=== PATIENT | female | born 1940 | race Caucasian/White ===

== ENCOUNTER 2021-04-05 20:46 | Observation (INO) | payer MEDICARE ==
[2021-04-05] MEDS ORDERED: ACETAMINOPHEN TAB 500 MG TAB PO STA (21:59)
[2021-04-05] MEDS ORDERED: KETOROLAC 15 MG/ML 1 ML VIAL IVP STA (21:59)
[2021-04-05] MEDS ORDERED: SODIUM CHLORIDE 0.9% 1,000 ML IV STA (21:59)
--- NOTE | 2021-04-05 22:00 | ED ---
Recheck HPI - General Chief Complaint: Allergic Reaction Stated Complaint: Allergic reaction, Vomiting Time Seen by Provider: 04/05/21 21:59 Source: patient, family, RN notes reviewed, old records reviewed Mode of arrival: wheelchair Limitations: altered mental status - History of Present Illness Initial Comments: This is a 81-year-old female DF for evaluation patient significant altered today for evaluation possible recent diagnosis of urinary tract infection acting appropriately. Patient unable to provide medical history history. Patient's chart as well as EMS to the emergency department MD Complaint: abnormal lab (History of urinary tract infection with altered mental status) -: hour(s) Returns Today for: Called Because of Abnormal Lab/Test, needs IV antibiotics, p ersistent/worsening pain related to initial visit Symptoms Since Prior Visit: no new symptoms Associated Symptoms: none Treatments Prior to Arrival: Given Antibiotics on - Related Data Home Medications Medication Instructions Recorded Confirmed Ascorbic Acid [Vitamin C] 500 mg PO HS 04/05/21 04/05/21 Atorvastatin Calcium [Lipitor] 20 mg PO HS 04/05/21 04/05/21 Cholecalciferol [Vitamin D3 (25 25 mcg PO HS 04/05/21 04/05/21 Mcg = 1000 Iu)] Cranberry Fruit Concentrate [Azo 500 mg PO DAILY 04/05/21 04/05/21 Cranberry] Lisinopril [Prinivil] 10 mg PO DAILY 04/05/21 04/05/21 Multivit-Min/Iron/Folic/Lutein 1 tab PO DAILY 04/05/21 04/05/21 [Centrum Silver Women Tablet] metFORMIN HCL [Glucophage] 500 mg PO DAILY 04/05/21 04/05/21 Previous Rx's Medication Instructions Recorded Levofloxacin [Levaquin] 500 mg PO Q24H #7 tab 04/08/21 lisinopriL [Zestril] 10 mg PO DAILY #30 tab 04/08/21 Allergies Allergy/AdvReac Type Severity Reaction Status Date / Time nitrofurantoin Allergy Unknown Verified 04/05/21 23:40 [From Macrobid] Sulfa (Sulfonamide Allergy Unknown Verified 04/05/21 23:40 Antibiotics) Review of Systems ROS Statement: Those systems with pertinent positive or pertinent negative responses have been documented in the HPI. ROS Other: All systems not noted in ROS Statement are negative. Past Medical History Past Medical History: Cancer, Diabetes Mellitus, Hyperlipidemia, Hypertension Additional Past Medical History / Comment(s): UTI, bladder cancer History of Any Multi-Drug Resistant Organisms: None Reported Past Surgical History: Orthopedic Surgery Past Psychological History: No Psychological Hx Reported Smoking Status: Former smoker Past Alcohol Use History: None Reported Past Drug Use History: None Reported - Past Family History Mother Family Medical History: Unable to Obtain (Not applicable to the current admissi on due to advanced age) General Exam Limitations: no limitations General appearance: alert, in no apparent distress Head exam: Present: atraumatic, normocephalic, normal inspection Eye exam: Present: normal appearance, PERRL, EOMI. Absent: scleral icterus, conjunctival injection, periorbital swelling ENT exam: Present: normal exam, mucous membranes moist Neck exam: Present: normal inspection. Absent: tenderness, meningismus, lymp hadenopathy Respiratory exam: Present: normal lung sounds bilaterally. Absent: respiratory distress, wheezes, rales, rhonchi, stridor Cardiovascular Exam: Present: regular rate, normal rhythm, normal heart sounds. Absent: systolic murmur, diastolic murmur, rubs, gallop, clicks GI/Abdominal exam: Present: soft, normal bowel sounds. Absent: distended, tenderness, guarding, rebound, rigid Extremities exam: Present: normal inspection, full ROM, normal capillary refill. Absent: tenderness, pedal edema, joint swelling, calf tenderness Back exam: Present: normal inspection Neurological exam: Present: alert, oriented X3, CN II-XII intact Psychiatric exam: Present: normal affect, normal mood Skin exam: Present: warm, dry, intact, normal color. Absent: rash Course Vital Signs 04/05/21 04/06/21 04/06/21 21:43 00:51 04:07 Temperature 100.3 F H 97.7 F 97.1 F L Pulse Rate 77 74 Pulse Rate [ 65 Right Pulse Oximetery] Respiratory 20 16 14 Rate Blood Pressure 101/56 92/51 Blood Pressure 103/68 [Right Arm] O2 Sat by Pulse 93 L 97 96 Oximetry 04/06/21 05:02 Temperature 97.5 F L Pulse Rate Pulse Rate [ 66 Right Pulse Oximetery] Respiratory 16 Rate Blood Pressure Blood Pressure 113/71 [Right Arm] O2 Sat by Pulse 97 Oximetry - Reevaluation(s) Reevaluation #1: 04/23/21 07:13 Medical record is reviewed Patient symptoms are significantly improved here in the ER Patient informed results and questions answered Medical Decision Making - Medical Decision Making 79 female with urinary tract infection is not improving or getting Better as an outpatient altered mental status and fever. Patient be admitted for IV antibiotics fever control hydration and supportive care - Lab Data Result diagrams: 04/07/21 08:16 04/07/21 08:16 Lab Results 04/05/21 04/05/21 04/05/21 Range/Units 22:31 22:31 22:31 WBC 20.3 H (3.8-10.6) k/uL RBC 4.68 (3.80-5.40) m/uL Hgb 13.7 (11.4-16.0) gm/dL Hct 42.7 (34.0-46.0) % MCV 91.2 (80.0-100.0) fL MCH 29.3 (25.0-35.0) pg MCHC 32.1 (31.0-37.0) g/dL RDW 12.5 (11.5-15.5) % Plt Count 239 (150-450) k/uL MPV 7.3 Neutrophils % 94 % Lymphocytes % 3 % Monocytes % 3 % Eosinophils % 1 % Basophils % 0 % Neutrophils # 19.0 H (1.3-7.7) k/uL Lymphocytes # 0.5 L (1.0-4.8) k/uL Monocytes # 0.6 (0-1.0) k/uL Eosinophils # 0.1 (0-0.7) k/uL Basophils # 0.0 (0-0.2) k/uL PT 10.3 (9.0-12.0) sec INR 1.0 (<1.2) APTT 21.2 L (22.0-30.0) sec Sodium 137 (137-145) mmol/L Potassium 4.0 (3.5-5.1) mmol/L Chloride 102 (98-107) mmol/L Carbon Dioxide 27 (22-30) mmol/L Anion Gap 8 mmol/L BUN 23 H (7-17) mg/dL Creatinine 1.07 H (0.52-1.04) mg/dL Est GFR (CKD-EPI)AfAm 57 (>60 ml/min/1.73 sqM) Est GFR (CKD-EPI)NonAf 49 (>60 ml/min/1.73 sqM) Glucose 167 H (74-99) mg/dL Plasma Lactic Acid Melquiades (0.7-2.0) mmol/L Calcium 9.3 (8.4-10.2) mg/dL Magnesium 1.9 (1.6-2.3) mg/dL Total Bilirubin 1.2 (0.2-1.3) mg/dL AST 24 (14-36) U/L ALT 19 (4-34) U/L Alkaline Phosphatase 81 (38-126) U/L Lactate Dehydrogenase 534 (313-618) U/L C-Reactive Protein 17.0 H (<1.0) mg/dL Total Protein 6.7 (6.3-8.2) g/dL Albumin 3.9 (3.5-5.0) g/dL Urine Color Urine Appearance (Clear) Urine pH (5.0-8.0) Ur Specific Monarch (1.001-1.035) Urine Protein (Negative) Urine Glucose (UA) (Negative) Urine Ketones (Negative) Urine Blood (Negative) Urine Nitrite (Negative) Urine Bilirubin (Negative) Urine Urobilinogen (<2.0) mg/dL Ur Leukocyte Esterase (Negative) Urine RBC (0-5) /hpf Urine WBC (0-5) /hpf Ur Squamous Epith Cells (0-4) /hpf Urine Bacteria (None) /hpf Urine Mucus (None) /hpf 04/05/21 04/05/21 Range/Units 22:31 22:34 WBC (3.8-10.6) k/uL RBC (3.80-5.40) m/uL Hgb (11.4-16.0) gm/dL Hct (34.0-46.0) % MCV (80.0-100.0) fL MCH (25.0-35.0) pg MCHC (31.0-37.0) g/dL RDW (11.5-15.5) % Plt Count (150-450) k/uL MPV Neutrophils % % Lymphocytes % % Monocytes % % Eosinophils % % Basophils % % Neutrophils # (1.3-7.7) k/uL Lymphocytes # (1.0-4.8) k/uL Monocytes # (0-1.0) k/uL Eosinophils # (0-0.7) k/uL Basophils # (0-0.2) k/uL PT (9.0-12.0) sec INR (<1.2) APTT (22.0-30.0) sec Sodium (137-145) mmol/L Potassium (3.5-5.1) mmol/L Chloride (98-107) mmol/L Carbon Dioxide (22-30) mmol/L Anion Gap mmol/L BUN (7-17) mg/dL Creatinine (0.52-1.04) mg/dL Est GFR (CKD-EPI)AfAm (>60 ml/min/1.73 sqM) Est GFR (CKD-EPI)NonAf (>60 ml/min/1.73 sqM) Glucose (74-99) mg/dL Plasma Lactic Acid Melquiades 1.0 (0.7-2.0) mmol/L Calcium (8.4-10.2) mg/dL Magnesium (1.6-2.3) mg/dL Total Bilirubin (0.2-1.3) mg/dL AST (14-36) U/L ALT (4-34) U/L Alkaline Phosphatase (38-126) U/L Lactate Dehydrogenase (313-618) U/L C-Reactive Protein (<1.0) mg/dL Total Protein (6.3-8.2) g/dL Albumin (3.5-5.0) g/dL Urine Color Yellow Urine Appearance Clear (Clear) Urine pH 5.5 (5.0-8.0) Ur Specific Monarch 1.024 (1.001-1.035) Urine Protein 1+ H (Negative) Urine Glucose (UA) Negative (Negative) Urine Ketones 1+ H (Negative) Urine Blood Negative (Negative) Urine Nitrite Negative (Negative) Urine Bilirubin Negative (Negative) Urine Urobilinogen <2.0 (<2.0) mg/dL Ur Leukocyte Esterase Moderate H (Negative) Urine RBC 3 (0-5) /hpf Urine WBC 30 H (0-5) /hpf Ur Squamous Epith Cells 1 (0-4) /hpf Urine Bacteria Rare H (None) /hpf Urine Mucus Occasional H (None) /hpf - EKG Data -: EKG Interpreted by Me (EKG shows NSR 70 NJ 146 QRS 86 QTc 453) - Radiology Data Radiology results: report reviewed (Chest x-rays negative for acute disease), image reviewed Disposition Clinical Impression: UTI (urinary tract infection), Fever, Altered mental state, Leukocytosis, Failure of outpatient treatment Disposition: ADMITTED IP TO THIS HOSP Condition: Fair Is patient prescribed a controlled substance at d/c from ED?: No
[2021-04-05 22:49] LABS: Basophils % (A) 0 %; Eosinophils # (A) 0.1 k/uL (0-0.7); Eosinophils % (A) 1 %; HCT 42.7 % (34.0-46.0); HGB 13.7 gm/dL (11.4-16.0); Lymphocytes # (A) 0.5 k/uL (1.0-4.8); Lymphocytes % (A) 3 %; MCH 29.3 pg (25.0-35.0); MCHC 32.1 g/dL (31.0-37.0); MCV 91.2 fL (80.0-100.0); Mean Platelet Volume 7.3; Monocytes # (A) 0.6 k/uL (0-1.0); Monocytes % (A) 3 %; Neutrophils % (A) 94 %; Platelet Count 239 k/uL (150-450); RBC 4.68 m/uL (3.80-5.40); RDW 12.5 % (11.5-15.5); WBC 20.3 k/uL (3.8-10.6)
--- NOTE | 2021-04-05 22:49 | XR ---
EXAMINATION TYPE: XR chest 1V portable DATE OF EXAM: 04/05/2021 COMPARISON: NONE HISTORY: Pneumonia. Short of breath TECHNIQUE: Single view FINDINGS: There is coarse interstitial density in the lungs. This is mainly in the lower lobes. Thora cic aorta is atheromatous. There are no hilar masses. Mediastinum shows no evidence of adenopathy. [place] ny thorax is intact. IMPRESSION: Mild pulmonary fibrotic changes. No acute lung disease.
[2021-04-05 22:59] LABS: Albumin 3.9 g/dL (3.5-5.0); Calcium 9.3 mg/dL (8.4-10.2); Magnesium 1.9 mg/dL (1.6-2.3); Total Bilirubin 1.2 mg/dL (0.2-1.3); Total Protein 6.7 g/dL (6.3-8.2)
[2021-04-05 23:11] LABS: Appearance,Urine Clear (Clear); Bacteria,Urine Rare /hpf; Bilirubin,Urine Negative (Negative); Blood,Urine Negative (Negative); Color,Urine Yellow; Glucose,Urine (UA) Negative (Negative); Ketones,Urine 1+ (Negative); Leukocyte Esterase,Urine Moderate (Negative); Mucus,Urine Occasional /hpf; Nitrite,Urine Negative (Negative); PH, Urine 5.5 (5.0-8.0); Protein,Urine 1+ (Negative); RBC,Urine 3 /hpf (0-5); Specific Gravity,Urine 1.024 (1.001-1.035); Squamous Epithelial Cell,Urine 1 /hpf (0-4); Urobilinogen,Urine <2.0 mg/dL (<2.0); WBC,Urine 30 /hpf (0-5)
[2021-04-05 23:25] LABS: Prothrombin Time 10.3 sec (9.0-12.0)
[2021-04-05 23:37] LABS: Partial Thromboplastin Time 21.2 sec (22.0-30.0)
[2021-04-06] MEDS ORDERED: ACETAMINOPHEN TAB 325 MG TAB PO PRN (01:17)
[2021-04-06] MEDS ORDERED: NALOXONE 0.4 MG/ML 1 ML VIAL IV PRN (01:17)
[2021-04-06] MEDS ORDERED: ONDANSETRON 4 MG/2 ML VIAL IVP PRN (01:17)
[2021-04-06] MEDS ORDERED: SODIUM CHLORIDE 0.9% 1,000 ML IV STA (01:19)
--- NOTE | 2021-04-06 02:35 | P.HPIM ---
History of Present Illness H&P Date: 04/06/21 The patient is an 80-year-old female with a PMH of type II DM, hypertension, and hyperlipidemia who presented to the emergency room due to complaints of dizziness. The patient reports that she was seen at her primary care physician's office yesterday for complaints of feeling off-balance. She reports that this is a typical symptom for when she gets UTI. She was started on Macrobid yesterday, and after taking 2 doses, she noticed that her dizziness had only progressed and she became confused as per the family at home. The family subsequently brought her to the emergency room. The patient notes feeling much better at the time of interview, and reported feeling almost back to her baseline. She denied experiencing any rashes, shortness of breath, or any other ALLERGIC symptoms. Reports mild nausea earlier today with a single episode of vomiting. Denied any urinary complaints. Further denied chest discomfort, abdominal pain, diarrhea, headaches, visual disturbances, weakness, numbness, tingling. The patient was febrile in the emergency room upon presentation with T-max of 100.3F. Laboratory evaluation was remarkable for leukocytosis of 20.3, BUN 23, creatinine 1.07, lactic acid 1.0, with UA consistent with UTI. Review of systems: Pertinent positives and negatives as discussed in HPI, a complete review of systems was performed and all other systems are negative. Physical examination: General: non toxic, no distress, appears at stated age, normal weight Derm: no unusual rashes/lesions no unusual ecchymoses, warm, dry Head: atraumatic, normocephalic, symmetric Eyes: EOMI, no lid lag, anicteric sclera, pupils equal round reactive to light ENT: Nose and ears atraumatic, no thrush, no pharyngeal erythema Neck: No thyromegaly, no cervical lymphadenopathy, trachea midline, supple Mouth: no lip lesion, mucus membranes moist Cardiovascular: S1S2 reg, no murmur, positive posterior tibial pulse bilateral, no edema, capillary refill less than 2 seconds Lungs: CTA bilateral, no rhonchi, no rales , no accessory muscle use Abdominal: soft, nontender to palpation, no guarding, no appreciable organomegaly, normal bowel sounds Ext: no gross muscle atrophy, muscle strength 5 out of 5 in all 4 extremities grossly, no contractures, Neuro: CN II-XI grossly intact, light touch intact all 4 extremities, finger to nose within normal limits, Psych: Alert, oriented, appropriate affect Assessment/plan UTI with failure of outpatient therapy -Continue with ceftriaxone -IV fluids -Follow up cultures Acute kidney injury -Likely secondary to dehydration with UTI -IV fluids and monitor for now Chronic conditions: Type II DM, hypertension, hyperlipidemia -Continue with home meds -Check A1c -Lispro insulin sliding scale and blood glucose monitoring DVT prophylaxis -Heparin subcu The patient is admitted with an anticipated [] than 2 midnight stay for evaluation of []. CODE STATUS:[] Discussed with: [] Anticipated discharge date: [] Anticipated discharge place: [] A total of [] minutes was spent on the care of this complex patient more than 50% of the time was spent in counseling and care coordination. Past Medical History Past Medical History: Cancer, Diabetes Mellitus, Hyperlipidemia, Hypertension Additional Past Medical History / Comment(s): UTI, bladder cancer History of Any Multi-Drug Resistant Organisms: None Reported Past Surgical History: Orthopedic Surgery Past Psychological History: No Psychological Hx Reported Smoking Status: Former smoker Past Alcohol Use History: None Reported Past Drug Use History: None Reported - Past Family History Mother Family Medical History: Unable to Obtain (Not applicable to the current admission due to advanced age) Medications and Allergies Home Medications Medication Instructions Recorded Confirmed Type Ascorbic Acid [Vitamin C] 500 mg PO HS 04/05/21 04/05/21 History Atorvastatin Calcium [Lipitor] 20 mg PO HS 04/05/21 04/05/21 History Cholecalciferol [Vitamin D3 (25 25 mcg PO HS 04/05/21 04/05/21 History Mcg = 1000 Iu)] Cranberry Fruit Concentrate [Azo 500 mg PO DAILY 04/05/21 04/05/21 History Cranberry] Lisinopril [Prinivil] 10 mg PO DAILY 04/05/21 04/05/21 History Multivit-Min/Iron/Folic/Lutein 1 tab PO DAILY 04/05/21 04/05/21 History [Centrum Silver Women Tablet] metFORMIN HCL [Glucophage] 500 mg PO DAILY 04/05/21 04/05/21 History Allergies Allergy/AdvReac Type Severity Reaction Status Date / Time nitrofurantoin Allergy Unknown Verified 04/05/21 23:40 [From Macrobid] Sulfa (Sulfonamide Allergy Unknown Verified 04/05/21 23:40 Antibiotics) Physical Exam Vitals: Vital Signs Temp Pulse Resp BP Pulse Ox 04/06/21 00:51 97.7 F 74 16 92/51 97 04/05/21 21:43 100.3 F H 77 20 101/56 93 L Intake and Output 04/05/21 04/05/21 04/06/21 14:59 22:59 06:59 Other: Weight 69.4 kg Results CBC & Chem 7: 04/05/21 22:31 04/05/21 22:31 Labs: Abnormal Lab Results - Last 24 Hours (Table) 04/05/21 04/05/21 04/05/21 Range/Units 22:31 22:31 22:31 WBC 20.3 H (3.8-10.6) k/uL Neutrophils # 19.0 H (1.3-7.7) k/uL Lymphocytes # 0.5 L (1.0-4.8) k/uL APTT 21.2 L (22.0-30.0) sec BUN 23 H (7-17) mg/dL Creatinine 1.07 H (0.52-1.04) mg/dL Glucose 167 H (74-99) mg/dL C-Reactive Protein 17.0 H (<1.0) mg/dL Urine Protein (Negative) Urine Ketones (Negative) Ur Leukocyte Esterase (Negative) Urine WBC (0-5) /hpf Urine Bacteria (None) /hpf Urine Mucus (None) /hpf 04/05/21 Range/Units 22:34 WBC (3.8-10.6) k/uL Neutrophils # (1.3-7.7) k/uL Lymphocytes # (1.0-4.8) k/uL APTT (22.0-30.0) sec BUN (7-17) mg/dL Creatinine (0.52-1.04) mg/dL Glucose (74-99) mg/dL C-Reactive Protein (<1.0) mg/dL Urine Protein 1+ H (Negative) Urine Ketones 1+ H (Negative) Ur Leukocyte Esterase Moderate H (Negative) Urine WBC 30 H (0-5) /hpf Urine Bacteria Rare H (None) /hpf Urine Mucus Occasional H (None) /hpf
[2021-04-06] MEDS: SODIUM CHLORIDE 0.9% 1,000 ML IV SCH ×3 (04:06→17:30)
[2021-04-06 07:23] LABS: Glucose,Whole Blood 91 mg/dL (75-99)
[2021-04-06] MEDS: HEPARIN SODIUM,PORCINE/PF 5,000 UNIT/0.5 ML SYRINGE SQ SCH ×3 (08:05→20:56)
[2021-04-06] MEDS: INSULIN ASPART (NovoLOG) 100 UNIT/ML VIAL SQ SCH ×4 (08:06→20:37)
[2021-04-06 11:33] LABS: HCT 39.7 % (37.2-46.3); MCH 28.4 pg (27.0-32.0); MCHC 30.2 g/dL (32.0-37.0); MCV 94.1 fL (80.0-97.0); Mean Platelet Volume 10.4 fL (9.5-12.2); Platelet Count 198 X 10*3/uL (140-440); RBC 4.22 X 10*6/uL (4.10-5.20); RDW 13.1 % (11.5-14.5); WBC 12.94 X 10*3/uL (4.50-10.00)
[2021-04-06 11:53] LABS: Glucose,Whole Blood 96 mg/dL (75-99)
[2021-04-06 13:15] LABS: African American GFR (CKD) 54.5 (60.0-200.0); Anion Gap 12.6 mmol/L (4.00-12.00); Blood Urea Nitrogen 19.8 mg/dL (9.0-27.0); Calcium 8.2 mg/dL (8.7-10.3); Carbon Dioxide 22.4 mmol/L (21.6-31.8)
[2021-04-06 17:00] LABS: Glucose,Whole Blood 101 mg/dL (75-99)
[2021-04-06 20:19] LABS: Glucose,Whole Blood 117 mg/dL (75-99)
[2021-04-06] MEDS: ATORVASTATIN 20 MG TAB PO SCH (20:56)
[2021-04-07] MEDS: SODIUM CHLORIDE 0.9% 1,000 ML IV SCH ×4 (02:04→20:40)
[2021-04-07 07:32] LABS: Glucose,Whole Blood 101 mg/dL (75-99)
[2021-04-07] MEDS: HEPARIN SODIUM,PORCINE/PF 5,000 UNIT/0.5 ML SYRINGE SQ SCH ×3 (08:55→20:40)
[2021-04-07] MEDS: INSULIN ASPART (NovoLOG) 100 UNIT/ML VIAL SQ SCH ×4 (08:57→20:18)
[2021-04-07 09:30] LABS: Basophils % (A) 0 %; Eosinophils # (A) 0.3 k/uL (0-0.7); Eosinophils % (A) 5 %; HCT 39.7 % (34.0-46.0); HGB 12.6 gm/dL (11.4-16.0); Lymphocytes # (A) 0.6 k/uL (1.0-4.8); Lymphocytes % (A) 9 %; MCH 29.4 pg (25.0-35.0); MCHC 31.8 g/dL (31.0-37.0); MCV 92.4 fL (80.0-100.0); Mean Platelet Volume 7.8; Monocytes # (A) 0.3 k/uL (0-1.0); Monocytes % (A) 4 %; Neutrophils # (A) 5.6 k/uL (1.3-7.7); Neutrophils % (A) 80 %; Platelet Count 210 k/uL (150-450); RDW 12.5 % (11.5-15.5)
[2021-04-07 09:42] LABS: ALT 15 U/L (4-34); AST 23 U/L (14-36); African American GFR (CKD) 62 (>60 ml/min/1.73 sqM); Albumin/Globulin Ratio 1.2; Alkaline Phosphatase 69 U/L (38-126); Anion Gap 4 mmol/L; Blood Urea Nitrogen 17 mg/dL (7-17); Calcium 8.2 mg/dL (8.4-10.2); Carbon Dioxide 26 mmol/L (22-30); Chloride 111 mmol/L (98-107); Globulin 2.6 g/dL; Glucose 105 mg/dL (74-99); Non-African American GFR(CKD) 54 (>60 ml/min/1.73 sqM); Potassium 3.8 mmol/L (3.5-5.1); Sodium 141 mmol/L (137-145); Total Bilirubin 0.5 mg/dL (0.2-1.3); Total Protein 5.6 g/dL (6.3-8.2)
[2021-04-07 12:46] LABS: Glucose,Whole Blood 74 mg/dL (75-99)
--- NOTE | 2021-04-07 13:34 | P.PN ---
Subjective Progress Note Date: 04/07/21 Principal diagnosis: General weakness Patient currently feeling better. She has been getting up out of bed and walking with supervision. He states that last night she felt wobbly when she woke up to go to bathroom. Due to that she told me that she is not comfortable going home today. Objective - Vital Signs Vital signs: Vital Signs Temp 98.4 F 04/07/21 08:00 Pulse 89 04/07/21 08:00 Resp 16 04/07/21 08:00 BP 192/83 04/07/21 08:00 Pulse Ox 94 L 04/07/21 08:00 Intake & Output 04/06/21 04/07/21 04/07/21 18:59 06:59 18:59 Intake Total 180 118 Balance 180 118 Intake: Oral 180 118 Other: Voiding Method Toilet Toilet Toilet # Voids 1 - Exam Constitutional: No acute distress, conversant, pleasant Eyes:Anicteric sclerae, moist conjunctiva, no lid-lag, PERRLA, ENMT: Oropharynx clear, no erythema, exudates Neck: Supple, FROM, no masses, or JVD, No carotid bruits, No thyromegaly Lungs: Clear to auscultation, Clear to percussion, Normal respiratory effort, no accessory muscle use Cardiovascular: Heart regular in rate and rhythm, No murmurs, gallops, or rubs, No peripheral edema Abdominal: Soft, Nontender, no guarding, rebound or rigidity, Normoactive bowel sounds, No hepatomegaly, No splenomegaly, No palpable mass Skin: Normal temperature, tone, texture, turgor, no induration, No subcutaneous nodules, No rash, lesions, No ulcers Extremities: No digital cyanosis, No clubbing, Pedal pulses intact and sy mmetrical, Radial pulses intact and symmetrical, No calf tenderness Psychiatric: Alert and oriented to person, place and time, appropriate affect, intact judgement Neuro: Muscles Strength 5/5 in all 4 extremities, Sensation to light touch grossly present throughout, Cranial nerves II-XII grossly intact, no focal sensory deficits - Labs CBC & Chem 7: 04/07/21 08:16 04/07/21 08:16 Labs: Abnormal Lab Results - Last 24 Hours (Table) 04/06/21 04/06/21 04/07/21 Range/Units 16:58 20:18 07:31 Lymphocytes # (1.0-4.8) k/uL Chloride (98-107) mmol/L Glucose (74-99) mg/dL POC Glucose (mg/dL) 101 H 117 H 101 H (75-99) mg/dL Calcium (8.4-10.2) mg/dL Total Protein (6.3-8.2) g/dL Albumin (3.5-5.0) g/dL 04/07/21 04/07/21 04/07/21 Range/Units 08:16 08:16 12:44 Lymphocytes # 0.6 L (1.0-4.8) k/uL Chloride 111 H (98-107) mmol/L Glucose 105 H (74-99) mg/dL POC Glucose (mg/dL) 74 L (75-99) mg/dL Calcium 8.2 L (8.4-10.2) mg/dL Total Protein 5.6 L (6.3-8.2) g/dL Albumin 3.0 L (3.5-5.0) g/dL Microbiology - Last 24 Hours (Table) 04/05/21 22:55 Blood Culture - Preliminary Blood No Growth after 24 hours 04/05/21 22:58 Blood Culture - Preliminary Blood No Growth after 24 hours 04/05/21 22:34 Urine Culture - Preliminary Urine,Voided Assessment and Plan Plan: UTI with failure of outpatient therapy -Continue with ceftriaxone -IV fluids -Follow up cultures Acute kidney injury -Likely secondary to dehydration with UTI -IV fluids and monitor for now -Resolved Chronic conditions: Type II DM, hypertension, hyperlipidemia -Continue with home meds -A1c 6 indicating good control. -Lispro insulin sliding scale and blood glucose monitoring DVT prophylaxis -Heparin subcu Anticipated discharge date: tomorrow Anticipated discharge place: home
[2021-04-07 17:52] LABS: Glucose,Whole Blood 149 mg/dL (75-99)
[2021-04-07 20:18] LABS: Glucose,Whole Blood 101 mg/dL (75-99)
[2021-04-07] MEDS: ATORVASTATIN 20 MG TAB PO SCH (20:40)
[2021-04-08 02:25] VITALS: RESP 18
[2021-04-08 07:39] LABS: Glucose,Whole Blood 100 mg/dL (75-99)
[2021-04-08] MEDS: INSULIN ASPART (NovoLOG) 100 UNIT/ML VIAL SQ SCH (07:51)
[2021-04-08] MEDS: HEPARIN SODIUM,PORCINE/PF 5,000 UNIT/0.5 ML SYRINGE SQ SCH (07:57)
[2021-04-08 08:22] VITALS: BP 163/75; PULSE 72; TEMP 98.3
[2021-04-08] MEDS ORDERED: LEVOFLOXACIN 500 MG TAB PO SCH (11:00)
[2021-04-08] MEDS ORDERED: lisinopriL 5 MG TAB PO SCH (11:00)
--- NOTE | 2021-04-08 11:06 | P.DS ---
Providers Date of admission: 04/06/21 01:17 Attending physician: Ryan Cardoza MD Primary care physician: Luna Ling Hospital Course: Admitting diagnoses: 1. UTI with failure of outpatient therapy 2. Acute kidney injury 3. Diabetes mellitus2 4. Hypertension 5. Hyperlipidemia Discharge diagnoses: 1. UTI improved 2. AK I resolved 3. Diabetes mellitus2 4. Hypertension 5. Hyperlipidemia Patient seen and examined at bedside. Patient denies chest pain, shortness of breath, fever, or chills. Patient is doing very well and is eager to go home. Vitals: Temperature 98.3 heart rate 72 respiratory rate 18 blood pressure 163/75 without taking her blood pressure medication lisinopril medication restarted before discharge oxygen saturation 99% room air Hospital course: The patient is an 80-year-old female with a PMH of type II DM, hypertension, and hyperlipidemia who presented to the emergency room due to complaints of dizziness. The patient reports that she was seen at her primary care physician's office the day before asmission for complaints of feeling off- balance. She reported that this is a typical symptom for when she gets UTI. She was started on Macrobid, and after taking 2 doses, she noticed that her dizziness had only progressed and she became confused as per the family at home. The family subsequently brought her to the emergency room. The patient notes feeling much better at the time of interview, and reported feeling almost back to her baseline. She denied experiencing any rashes, shortness of breath, or any other ALLERGIC symptoms. Reports mild nausea earlier today with a single episode of vomiting. Denied any urinary complaints. Further denied chest discomfort, abdominal pain, diarrhea, headaches, visual disturbances, weakness, numbness, tingling. The patient was febrile in the emergency room upon presen tation with T-max of 100.3F. Laboratory evaluation was remarkable for leukocytosis of 20.3, BUN 23, creatinine 1.07, lactic acid 1.0, with UA consistent with UTI. Patient was given IV antibiotics and fluids and patient's symptoms improved. Patient will be discharged on oral Levaquin and she is to follow-up with her primary care physician in 2-7 days. Condition fair Diet diabetic Activity as tolerated Disposition home Patient Condition at Discharge: Fair Plan - Discharge Summary Discharge Rx Participant: Yes New Discharge Prescriptions: New Levofloxacin [Levaquin] 500 mg PO Q24H #7 tab Continue Multivit-Min/Iron/Folic/Lutein [Centrum Silver Women Tablet] 1 tab PO DAILY Lisinopril [Prinivil] 10 mg PO DAILY Cholecalciferol [Vitamin D3 (25 Mcg = 1000 Iu)] 25 mcg PO HS Ascorbic Acid [Vitamin C] 500 mg PO HS metFORMIN HCL [Glucophage] 500 mg PO DAILY Cranberry Fruit Concentrate [Azo Cranberry] 500 mg PO DAILY Atorvastatin Calcium [Lipitor] 20 mg PO HS Discharge Medication List Ascorbic Acid [Vitamin C] 500 mg PO HS 04/05/21 [History] Atorvastatin Calcium [Lipitor] 20 mg PO HS 04/05/21 [History] Cholecalciferol [Vitamin D3 (25 Mcg = 1000 Iu)] 25 mcg PO HS 04/05/21 [History] Cranberry Fruit Concentrate [Azo Cranberry] 500 mg PO DAILY 04/05/21 [History] Lisinopril [Prinivil] 10 mg PO DAILY 04/05/21 [History] Multivit-Min/Iron/Folic/Lutein [Centrum Silver Women Tablet] 1 tab PO DAILY 04/05/21 [History] metFORMIN HCL [Glucophage] 500 mg PO DAILY 04/05/21 [History] Levofloxacin [Levaquin] 500 mg PO Q24H #7 tab 04/08/21 [Rx] Follow up Appointment(s)/Referral(s): Luna Ling DO [Primary Care Provider] - 1-2 days [facility], [NON-STAFF] - Discharge Disposition: HOME SELF-CARE
[2021-04-08] MEDS ORDERED: lisinopriL 10 MG TAB PO SCH (11:15)
== END 2021-04-08 14:40 | disposition home or self-care (01) ==
LOC: EC 20:46 → 4SSUR 04-06 01:17 → INTOOBSV 04-06 01:17 → 6NMEDSUR 04-06 04:15 → UNDODISIN 04-08 14:40
PROVIDERS: ADMIT Internal Medicine; ATTEND Internal Medicine
DX: N39.0 Urinary tract infection, site not specified (principal); N17.9 Acute kidney failure, unspecified; E11.9 Type 2 diabetes mellitus without complications; I10 Essential (primary) hypertension; E86.0 Dehydration; Z20.822 Contact with and (suspected) exposure to COVID-19; E78.5 Hyperlipidemia, unspecified; Z79.84 Long term (current) use of oral hypoglycemic drugs; Z79.899 Other long term (current) drug therapy; Z88.1 Allergy status to other antibiotic agents; Z88.2 Allergy status to sulfonamides; Z85.51 Personal history of malignant neoplasm of bladder; Z87.891 Personal history of nicotine dependence; Z87.440 Personal history of urinary (tract) infections
CPT/HCPCS: 99285; 96366 ×2; 96372 ×3; 96361 ×2; 96365; 96375; 36415; 93005; 80053 ×2; 80048; 83605; 83615; 83735; 85025 ×2; 85027; 85610; 85730; 86140; 81001; 87040; 87086; 83036; 87635; 71045; G0378 ×3; J0696 ×4; J1885; J1644 ×3